=== PATIENT | male | born 1945 | race Caucasian/White ===

== ENCOUNTER → 2016-05-10 | Outpatient (CLI) | payer OTHER ==
[~2016-05-10] MED LIST: NA BICARBONATE 50 MEQ/50 ML VIAL ONE
== END ==
LOC: FIMAGING 12:13
PROVIDERS: ATTEND Radiology Diagnostic Radiology
PROC: 07BH3ZX Excision of Right Inguinal Lymphatic, Percutaneous Approach, Diagnostic (ICD-10-PCS; principal; 2016-05-10)
DX: C79.89 Secondary malignant neoplasm of other specified sites (principal); C60.9 Malignant neoplasm of penis, unspecified

== ENCOUNTER 2016-06-20 11:11 | Observation (INO) | payer OTHER ==
--- NOTE | 2016-06-19 18:17 | GHP ---
[f rep st] PREOP HISTORY AND PHYSICAL This is a 71-year-old gentleman who has had squamous cell carcinoma of the penis, and he has had bebeto ateral limited groin node dissections, and then he had a recurrence of the tumor in the left groin a nd that was dissected. He has had radiation and chemotherapy for that. Now he has a right lymph no de that does not appear to be fixed, but it is quite palpable and is noted on imaging. At the prese nt time, he is admitted for a right pelvic lymph node and inguinal lymph node dissection. 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 PAST SURGICAL HISTORY: Hand, inguinal lymphadenectomy, pelvic lymphadenectomy, penectomy. MEDICATIONS: Metformin. ALLERGIES: None. FAMILY HISTORY: Positive for heart disease and hypertension. SOCIAL HISTORY: Moderate alcohol consumption. Former smoker. REVIEW OF SYSTEMS: Negative for cardiac, respiratory, GI, and endocrine. PHYSICAL EXAM: VITAL SIGNS: Stable. CHEST: Clear. HEART: Regular rate and rhythm. ABDOMEN: N ormal. No organomegaly, rebound, or guarding. He has had a distal penectomy and a left groin disse ction as well as inguinal and iliac lymph node dissection, and he has a right groin mass. At the present time, he is admitted for the above procedure. Indications, complications, and option s discussed. Written and verbal consent has been obtained. He is admitted for the above procedure. /[id number]/MODL
[2016-06-20] MEDS ORDERED: CEFAZOLIN 1 GM/DEXTROSE/50 ML BAG IV ONE (12:00)
[2016-06-20] MEDS ORDERED: MIDAZOLAM 2 MG/2 ML VIAL ONE (12:30)
[2016-06-20] MEDS ORDERED: fentaNYL 250 MCG/5 ML INJ ONE (12:31)
[2016-06-20] MEDS ORDERED: PROPOFOL/EMULSION 500 MG/50 ML BOTTLE IV ONE (12:32)
[2016-06-20] MEDS ORDERED: D5W LR 1,000 ML IV ONE (13:30)
[2016-06-20] MEDS ORDERED: BUPIVACAINE 0.5% 30 ML SDV ONE (14:59)
[2016-06-20] MEDS ORDERED: fentaNYL 100 MCG/2 ML INJ ONE ×2 (15:02→16:19)
[2016-06-20] MEDS ORDERED: ONDANSETRON 4 MG/2 ML VIAL IVP PRN (15:34)
[2016-06-20] MEDS ORDERED: HYDROmorphONE/DILAUDID 1 MG/ML SYR IVP PRN (15:34)
[2016-06-20] MEDS ORDERED: ACETAMINOPHEN 325 MG TAB PO PRN (15:34)
[2016-06-20] MEDS ORDERED: ONDANSETRON DISINTEGRATING 4 MG TAB PO PRN (15:34)
[2016-06-20] MEDS ORDERED: NALOXONE HCL 0.4 MG/ML INJ IVP PRN (15:34)
--- NOTE | 2016-06-20 16:15 | GOP ---
[f rep st] OPERATIVE REPORT DATE OF OPERATION: 06/20/2016 SURGEON: Dima Jeffers MD PERSONAL LINES UNDERWRITER SURGEON: Jayro Christian MD ANESTHESIA: General anesthesia. After an appropriate time-out and undergoing general anesthesia and being prepped and draped in a frog-legged position, and then the incision was carried from just 4 cm below the palpable inguinal nodes to just 4 cm below the umbilicus in the right lateral axillary line, and this was carried down through to the point I get to the Miley's fascia layers, and I dissected that off so their skin flaps appeared to be well vascularized. I then was able to take the dissection down to where I could identify the inguinal ligament. The inferior part of the rectus muscle and external oblique fibers of the external ring and the inguinal spermatic cord, and then this was carried down to identify the adductor glenis muscle medially and the sartorius laterally and carried below the palpable mass, and then this dissection was carried to the point I could identify the femoral vein, and there is a big venous complex that came off the anteromedial aspect of the vein that went into the mass, and that was handled and managed with hemoclips and identified the femoral artery, the femoral vein and stayed just to the lateral edge of the femoral artery and did not dissect over the femoral nerves. This was carried down to where a skeletonized fascia of the appropriate muscle layers as described above. Then, the inguinal ligament was divided and entered the retroperitoneal space and carried the dissection along the femoral vein up to where there was some palpable nodes just inside the true pelvis. Then, the nodes were dissected from the medial aspect of the external iliac vein. I could identify by palpation the obturator foramen, and there were no palpable nodes at that point. The dissection was taken up to the point where there no palpable disease and anything above our dissection appeared to be normal feeling tissue. I could identify the femoral vein up to just below the bifurcation of the common iliac. The bladder was not entered, and it grossly appeared to be intact. Hemostasis was provided with a ligature and hemoclips. At the end of the procedure, there was no bleeding sites identified. There was no palpable disease. The vessels were skeletonized and had good pulses of the lower extremity on the right side with palpable pulses in the foot, and the vein had no appearance of compromise. The subcutaneous tissue was approximated with 0 Vicryl. After placing a 10 flat Dillon-Lewis drain that went in the femoral dissection as well into the pelvis and brought out through the inferior part of the incision just lateral, and then after closure of the subcutaneous tissue, the skin was approximated with shelby. The drain was sewn in place with a 3-0 silk. Marcaine was used to infiltrate the operative field for local pain control. ANESTHESIOLOGIST: Dr. Beauchamp. PREOPERATIVE DIAGNOSIS: Squamous cell carcinoma of the penis, metastatic to right groin and pelvic lymph nodes. POSTOPERATIVE DIAGNOSIS: Squamous cell carcinoma of the penis, metastatic to right groin and pelvic lymph nodes. PROCEDURE PERFORMED: Right superficial and deep femoral node dissection and pelvic external iliac node dissection. FINDINGS: Bulky nodes of the groin and small shoddy nodes of the iliac node chain SPECIMENS: Sent to pathology. ESTIMATED BLOOD LOSS: Less than 100 mL. DESCRIPTION OF PROCEDURE: COMPLICATIONS: None. He will be admitted postoperatively overnight and will request that he has a thigh length compression stocking. This was an attempt to prevent any significant lower extremity edema. We discussed the above issues with his , and she appears to be well informed , and I have answered her questions to the best of my ability. Copy requested to: Dr. Hanley /[id number]/MODL MTDD
[2016-06-20] MEDS: D5W 1/2 NS W/ 20 KCl/L 1,000 ML IV SCH (17:39)
[2016-06-20] MEDS: OXYCODONE/APAP 5/325 TAB PO PRN ×3 (17:39→23:45)
[2016-06-20] MEDS: metFORMIN HCL 500 MG TAB PO SCH (19:00)
[2016-06-20] MEDS ORDERED: HYDROmorphONE/DILAUDID 6 MG/30 ML PCA IV PRN (19:40)
[2016-06-20] MEDS ORDERED: ATORVASTATIN CALCIUM 20 MG TAB PO SCH (21:00)
[2016-06-21] MEDS: D5W 1/2 NS W/ 20 KCl/L 1,000 ML IV SCH (03:17)
[2016-06-21 05:00] VITALS: TEMP 97.7
[2016-06-21 07:43] VITALS: BP 112/66; PULSE 70; RESP 16
--- NOTE | 2016-06-21 08:02 | SOAPPROG ---
SOAP Progress Note Assessment/Plan: Assessment: Metastatic squamous cell carcinoma Acute Squamous cell carcinoma of penis Acute POD 1, VSS, consider dc later today, path pending Plan: as noted, dc with [facility], pt aware of use and care from prior surgery 06/21/16 08:27 Subjective: doing well Objective: Vital Signs Temp Pulse Resp BP Pulse Ox 36.5 C 70 16 112/66 97 06/21/16 07:40 06/21/16 07:40 06/21/16 07:40 06/21/16 07:40 06/21/16 07:40 06/20/16 06/21/16 06/22/16 05:59 05:59 05:59 Intake Total 4300 1255 Output Total 2660 35 Balance 1640 1220 Physical Exam - Physical Exam General Appearance: alert Respiratory: No respiratory distress Cardiac/Chest: regular rate, rhythm Abdomen: soft Male Genitalia: other (groin and leg on right normal, dressing dry, lymph fluid from the [facility]) Back: No CVA tenderness Extremities: non-tender, No calf tenderness, No swelling, No Gildardo's sign Neuro/Psych: alert, oriented x 3 ICD10 Worksheet Patient Problems: Problems Problem Status Onset Metastatic squamous cell carcinoma Acute Squamous cell carcinoma of penis Acute
[2016-06-21] MEDS: metFORMIN HCL 500 MG TAB PO SCH (08:43)
[2016-06-21] MEDS: OXYCODONE/APAP 5/325 TAB PO PRN (10:50)
[2016-06-21 10:59] VITALS: O2SAT 93
== END 2016-06-21 11:35 | disposition home or self-care (01) ==
LOC: INTOOBSV 11:11 → F3E 11:11 → F1N 15:33
PROVIDERS: ADMIT Specialist; ATTEND Specialist
PROC: 07BH0ZX Excision of Right Inguinal Lymphatic, Open Approach, Diagnostic (ICD-10-PCS; principal; 2016-06-20 13:00)
DX: C77.4 Secondary and unspecified malignant neoplasm of inguinal and lower limb lymph nodes (principal); C60.9 Malignant neoplasm of penis, unspecified
CPT/HCPCS: 38500; G0378; J0690; J2250; J2704; J3010

== ENCOUNTER → 2016-10-30 | Outpatient (CLI) | payer OTHER ==
[~2016-10-30] MED LIST changes: +LIDOCAINE 1% 300 MG/30 ML SDV ONE; -NA BICARBONATE 50 MEQ/50 ML VIAL ONE
[2016-11-01 09:41] LABS: FINAL DIAGNOSIS See Comments; MICROSCOPIC DESCRIPTION See Comments
== END ==
LOC: FIMAGING 11:47
PROVIDERS: ATTEND Internal Medicine Hematology & Oncology
PROC: 07B23ZX Excision of Left Neck Lymphatic, Percutaneous Approach, Diagnostic (ICD-10-PCS; principal; 2016-10-30)
DX: C77.9 Secondary and unspecified malignant neoplasm of lymph node, unspecified (principal); C60.9 Malignant neoplasm of penis, unspecified; Z85.72 Personal history of non-Hodgkin lymphomas
CPT/HCPCS: 88184-90; 88185-91

== ENCOUNTER → 2017-01-02 | Outpatient (CLI) | payer OTHER | LOC: FIMAGING 13:41 | PROVIDERS: ATTEND Internal Medicine Hematology & Oncology | DX: I82.4Z2 Acute embolism and thrombosis of unspecified deep veins of left distal lower extremity (principal); C60.9 Malignant neoplasm of penis, unspecified ==

== ENCOUNTER 2017-01-06 09:20 | Inpatient (IN) | payer OTHER ==
[2017-01-06] MEDS ORDERED: ONDANSETRON 4 MG/2 ML VIAL IVP PRN (10:08)
[2017-01-06] MEDS ORDERED: ACETAMINOPHEN 325 MG TAB PO PRN (10:08)
[2017-01-06] MEDS ORDERED: ONDANSETRON DISINTEGRATING 4 MG TAB PO PRN (10:08)
[2017-01-06] MEDS ORDERED: NS 1,000 ML IV SCH (11:15)
[2017-01-06 11:44] LABS: INR 0.98 (0.83-1.16); PROTIME(PATIENT) 12.9 SEC (12.0-15.0)
[2017-01-06 11:45] LABS: APTT 28.6 SEC (23.0-38.0)
[2017-01-06] MEDS ORDERED: MIDAZOLAM 2 MG/2 ML VIAL ONE ×2 (13:14→13:53)
[2017-01-06] MEDS ORDERED: fentaNYL 100 MCG/2 ML INJ ONE ×2 (13:14→13:52)
[2017-01-06] MEDS ORDERED: FLUMAZENIL 0.5 MG/5 ML MDV IVP ONE (13:52)
[2017-01-06] MEDS ORDERED: NALOXONE HCL 0.4 MG/ML INJ ONE (13:52)
[2017-01-06] MEDS ORDERED: HEPARIN/DEXTROSE 25,000 UNIT/500 ML BAG ONE (13:58)
[2017-01-06] MEDS ORDERED: ALTEPLASE 5 MG in NS 100 ML IV SCH (14:00)
[2017-01-06] MEDS ORDERED: IOPAMIDOL (ISOVUE-300) 100 ML BTL ONE (14:28)
[2017-01-06] MEDS ORDERED: PROMETHAZINE HCL 25 MG/ML INJ IVP PRN (14:46)
[2017-01-06] MEDS ORDERED: LORazepam 1 MG TAB PO PRN (14:46)
--- NOTE | 2017-01-06 14:56 | POSTOPPROG ---
Post Op Note Date of Operation: 01/06/17 Surgeon: Tia Junior Anesthesia: IV Sedation (fentanyl and versed) Pre-op Diagnosis: LLE DVT Post-op Diagnosis: same Indication: very red and swollen LLE Procedure: venogram, TPA lysis Findings: acute LLE DVT and stricture at EIV Inf/Abcess present in the surg proc area at time of surgery?: No Depth: Superfical (Skin SQ) EBL: Minimal Complications: None
[2017-01-06] MEDS ORDERED: HEPARIN/DEXTROSE 500 ML IV SCH (15:00)
[2017-01-06 15:59] LABS: % IMMATURE GRANULYOCYTES 0.5 % (0.0-1.1); ABSOLUTE IMMATURE GRANULOCYTES 0.03 10^3/uL (0.00-0.10); ADD DIFF? NO; ADD MORPH? NO; ADD SCAN? NO; ATYPICAL LYMPHOCYTE FLAG 40 (0-99); FRAGMENT RBC FLAG 0 (0-99); HEMATOCRIT 35.5 % (40.0-51.0); HEMOGLOBIN 12.5 g/dL (13.7-17.5); LEFT SHIFT FLG 0 (0-99); LIPEMIA HEMOLYSIS FLAG 90 (0-99); MEAN CELL HEMOGLOBIN 35.8 pg (27.9-34.1); MEAN CELL HEMOGLOBIN CONCENTR. 35.2 g/dL (32.4-36.7); MEAN CELL VOLUME 101.7 fL (81.5-99.8); MEAN PLATELET VOLUME 9.4 fL (8.7-11.7); PLATELET CLUMPS FLAG 0 (0-99); PLATELET COUNT 252 10^3/uL (150-400); RED BLOOD CELL COUNT 3.49 10^6/uL (4.40-6.38); RED CELL DISTRIBUTION WIDTH 13.1 % (11.5-15.2)
[2017-01-06] MEDS ORDERED: ZOLPIDEM TARTRATE 5 MG TAB PO PRN (16:07)
[2017-01-06 16:13] LABS: APTT 28.4 SEC (23.0-38.0)
[2017-01-06] MEDS: ALTEPLASE 5 MG in NS 100 ML IV SCH ×3 (16:32→23:55)
[2017-01-06 16:35] LABS: ANION GAP 10 mEq/L (8-16); CALCIUM 9.5 mg/dL (8.5-10.4); CARBON DIOXIDE 22 mEq/l (22-31); CHLORIDE 101 mEq/L (97-110); CREATININE 0.8 mg/dL (0.7-1.3); GLOMERULAR FILTRATION RATE > 60; GLUCOSE 104 mg/dL (70-100); SODIUM 133 mEq/L (134-144)
[2017-01-06] MEDS: metFORMIN HCL 500 MG TAB PO SCH (16:53)
--- NOTE | 2017-01-06 17:19 | GHP ---
[f rep st] HISTORY AND PHYSICAL DATE OF ADMISSION: 01/06/2017 CHIEF COMPLAINT: Left leg swelling and pain. HISTORY OF PRESENT ILLNESS: This is 71 year-old male with known history of penile carcinoma, metastatic, status both chemotherapy and radiation, who presents with several weeks of progressive left lower extremity edema and ultimately pain. The patient has had lymph node dissections on the right related to malignancy without right lower extremity swelling. He then went on a very extended over [address] trip. During the course of this drip and after noted marked increased edema of his left lower extremity. The patient presented to his outpatient oncologist who obtained an ultrasound and confirmed the presence of a very large deep venous thrombosis on the left. The patient denies any subjective fevers or chills. Denies palpitations. Denies shortness of breath. Denies pleuritic chest pain. Denies headache, vision changes, dysphagia, nausea, vomiting. Has noted the edema noted above. Denies any rashes. PAST MEDICAL HISTORY: 1. Metastatic squamous cell cancer of the penis receiving immunotherapies and status post radiation. 2. Non-Hodgkins Lymphoma diagnosed in 2014. 3. Hypertension. 4. Steroid induced hyperglycemia. SOCIAL HISTORY: Negative for tobacco, alcohol, or illicit drugs. FAMILY HISTORY: Positive for multiple relatives with MD and stroke. REVIEW OF SYSTEMS: A 10-point review of systems is negative with the exception of reported in the HPI. PHYSICAL EXAMINATION: VITAL SIGNS: Blood pressure 161/72, heart rate 78, respiratory rate 12, saturating 95% on room air. Afebrile. HEENT: Exam is notable for moist mucous membranes. Eye exam is negative for any icterus. CARDIAC: The patient is regular rate and rhythm. PULMONARY: Clear to auscultation bilaterally. GASTROINTESTINAL: Positive bowel sounds. ABDOMEN: Soft and nontender in all 4 quadrants. MUSCULOSKELETAL: Notable for marked edema of the left lower extremity. 2+ extending from the foot, the groin. With no lower extremity edema of the right lower extremity. SKIN: Exam is notable for a reddening of the left lower extremity. No focal rashes. NEUROLOGIC: The patient is alert and oriented x3. PSYCHIATRIC: He is pleasant and cooperative on interview and examination. LABORATORY DATA: WBC count is normal, platelet count 250. IMAGING: Ultrasound of the lower extremity, which I personally reviewed, shows extensive DVT of the left lower extremity. Telemetry, which I personally reviewed and interpreted, shows sinus rhythm with no acute changes. ASSESSMENT AND PLAN: This is a 71 year-old gentleman presenting with left lower extremity swelling and pain. 1. Acute left lower extremity deep venous thrombosis, extensive. The patient has multiple risk factors, including malignancy, recent car travel, and recent surgical intervention. The patient is presenting for elective thrombolysis with Interventional Radiology, then to resume long-term anti coagulation. Will treat with IV pain medications and follow up thrombolysis protocol over night. The patient will be admitted to the intensive care unit. 2. Metastatic squamous cell penile carcinoma. The patient is followed closely by [facility]. Will continue his treatment course per their directives. 3. Hypertension. Will continue his outpatient medications. 4. Steroid induced hyperglycemia. We can follow the patient's blood glucose while inpatient. If greater than 200s will initiate sliding scale insulin. 5. Prophylaxis. The patient is on thrombolysis protocol. 6. Diet, regular. DISPOSITION: I expect in greater than 2 midnights. The patient is presenting for the 1st stages of thrombolysis, will likely require 2-midnight hospitalization until completion of the protocol. I have discussed the case with Dr. Pulido from pulmonary critical care. The patient will be admitted per protocol to the ICU to complete his thrombolysis. /[id number]/MODL MTDD
[2017-01-06] MEDS ORDERED: NON-FORMULARY NEW DRUG (Metformin Hcl [Glucophage 1000 Mg] 1,000 MG) PO SCH (18:00)
[2017-01-06] MEDS: HYDROCODONE/APAP 5/325 TAB PO PRN ×2 (18:06→21:58)
[2017-01-06] MEDS ORDERED: ATORVASTATIN CALCIUM 20 MG TAB PO SCH (21:00)
[2017-01-07 04:04] LABS: ANION GAP 8 mEq/L (8-16); CALCIUM 8.5 mg/dL (8.5-10.4); CARBON DIOXIDE 24 mEq/l (22-31); CHLORIDE 103 mEq/L (97-110); CREATININE 0.7 mg/dL (0.7-1.3); GLOMERULAR FILTRATION RATE > 60; GLUCOSE 116 mg/dL (70-100); POTASSIUM 4.3 mEq/L (3.5-5.2); SODIUM 135 mEq/L (134-144)
[2017-01-07 04:08] LABS: APTT 47.3 SEC (23.0-38.0)
[2017-01-07 04:13] LABS: % IMMATURE GRANULYOCYTES 0.8 % (0.0-1.1); ABSOLUTE IMMATURE GRANULOCYTES 0.05 10^3/uL (0.00-0.10); ADD DIFF? NO; ADD MORPH? NO; ADD SCAN? NO; ATYPICAL LYMPHOCYTE FLAG 20 (0-99); FRAGMENT RBC FLAG 0 (0-99); HEMATOCRIT 35.4 % (40.0-51.0); LEFT SHIFT FLG 0 (0-99); LIPEMIA HEMOLYSIS FLAG 90 (0-99); MEAN CELL HEMOGLOBIN 35.1 pg (27.9-34.1); MEAN CELL HEMOGLOBIN CONCENTR. 33.9 g/dL (32.4-36.7); MEAN CELL VOLUME 103.5 fL (81.5-99.8); MEAN PLATELET VOLUME 9.5 fL (8.7-11.7); PLATELET CLUMPS FLAG 0 (0-99); PLATELET COUNT 255 10^3/uL (150-400); RED BLOOD CELL COUNT 3.42 10^6/uL (4.40-6.38); RED CELL DISTRIBUTION WIDTH 13.4 % (11.5-15.2)
[2017-01-07] MEDS: ALTEPLASE 5 MG in NS 100 ML IV SCH ×2 (04:33→14:22)
[2017-01-07] MEDS: metFORMIN HCL 500 MG TAB PO SCH ×2 (08:43→17:00)
[2017-01-07] MEDS: HYDROCODONE/APAP 5/325 TAB PO PRN ×3 (08:43→17:00)
--- NOTE | 2017-01-07 09:17 | PDMN ---
Medical Necessity Medical necessity: Patient meets INPT criteria per physician note and MCG M-350 DVT of LE's (catheter-directed thrombolysis of acute extensive LLE DVT after hx of metastatic penile carcinoma, progressive LLE pain and edema post-long road trip; HTN; steroid-induced hyperglycemia; anticipated LOS > 2 midnights w/ ICU monitoring and f/u thrombolysis protocol.)
[2017-01-07 12:43] VITALS: PULSE 81; TEMP 98; O2SAT 98
[2017-01-07 14:06] VITALS: BP 122/73; RESP 20
--- NOTE | 2017-01-07 14:13 | GCON ---
[f rep st] CONSULTATION The patient is a 71-year-old male who has a history of penile cancer and follicular lymphoma. To rev iew, he was initially diagnosed with penile cancer in October of 2013. He underwent a partial penecto my and then, in December 2013, he underwent a right inguinal lymph node dissection with no evidence of malignancy. In March of 2014, he underwent a left inguinal lymph node dissection. Two lymph node s were submitted, both of which showed follicular lymphoma. He was staged that at that time and had no evidence of systemic disease, and then received radiation therapy to the left inguinal region. Un fortunately, in late 2014, he was found to have another mass in his left groin, and a biopsy showed r ecurrent squamous cell carcinoma. PET scan showed no evidence of widespread disease, and he underwen t a radical lymph node dissection, with a number of lymph nodes showing metastatic squamous cell carc inoma. He then underwent adjuvant chemotherapy with paclitaxel, ifosfamide, and cisplatin for 4 cycl es, from June of 2015 to August of 2015. Unfortunately, after that, he recurred in his right inguinal area and again underwent a repeat right inguinal and femoral lymph node dissection, and 3 out of 9 n odes were involved. PET scan prior to that showed no evidence of disease. However, a repeat PET sca n, performed September of 2016, showed development of a glucose-avid left supraclavicular node, as well as retroperitoneal adenopathy. He was then started on a clinical trial using nivolumab and has done we ll. However, he developed subacute swelling in his left leg and was found to have an extensive left leg DVT. He was started on Lovenox last week, but as the leg showed no evidence of improvement, he h as been admitted for lytic therapy, which was started yesterday. He currently is lying supine in bed , somewhat bored but otherwise doing okay. PAST MEDICAL HISTORY: Significant for diabetes and hypertension. FAMILY HISTORY: Significant for coronary artery disease. REVIEW OF SYSTEMS: Negative, except as discussed in the HPI. PHYSICAL EXAM: GENERAL: He is a pleasant male. VITAL SIGNS: Stable. LYMPHATICS: No adenopathy. LUNGS: Clear. CARDIAC: Unremarkable. ABDOMEN: Benign. EXTREMITIES: There is scrotal edema, an d his left leg is quite swollen, with an intact dorsalis pedis pulse. LABORATORY DATA: White count of 6000, hemoglobin 12, platelets 314,000. Chemistry panel is generall y unremarkable. IMPRESSION: Extensive left leg deep vein thrombosis in the setting of both penile cancer and a histo ry of follicular lymphoma. He has had multiple violations of his inguinal and femoral areas on both the right and the left, and there is evidence of a high-grade stricture in the midpelvis, in the mid external iliac vein. PLAN: We will continue with lytic therapy. Additional thrombolytics therapy. Perhaps mechanical th rombectomy and stent placement may be indicated. Our service will follow with you. /[id number]/MODL
[2017-01-07] MEDS ORDERED: MIDAZOLAM 2 MG/2 ML VIAL ONE (15:15)
[2017-01-07] MEDS ORDERED: fentaNYL 100 MCG/2 ML INJ ONE (15:15)
[2017-01-07] MEDS ORDERED: IOPAMIDOL (ISOVUE-300) 100 ML BTL ONE (16:14)
--- NOTE | 2017-01-07 16:18 | ASMTCMCOM ---
CM Note CM Note Notes: 71 year old male admitted for L LE pain-DVT. He has a hx of penile CA with mets-s/p chemo and radiation. Patient took a recent 3,000 mi trip. He has a hx of HTN and steroid induced hyperglycemia. CM to follow may not have discharge needs. Date Signed: 01/07/2017 04:17 PM Electronically Signed By:Lamar Nicholson LCSW
--- NOTE | 2017-01-07 17:06 | POSTOPPROG ---
Post Op Note Date of Operation: 01/07/17 Surgeon: Tia Junior Pre-op Diagnosis: LLE DVT Post-op Diagnosis: same Indication: lysis follow up Procedure: venogram; stent placement Findings: complete clot lysis. two strictures opened with stents Inf/Abcess present in the surg proc area at time of surgery?: No Depth: Superfical (Skin SQ) EBL: Minimal Complications: None
[2017-01-07] MEDS ORDERED: FLU VACC QS 2017-18 (3YR+)/PF 0.5 ML SYR (FLUARIX QUAD) IM ONE (17:13)
--- NOTE | 2017-01-07 17:16 | GDS ---
[f rep st] DISCHARGE SUMMARY DISCHARGE DIAGNOSES: Include: 1. Acute deep venous thrombosis of the left lower extremity, status post thrombolysis and stenting. 2. Metastatic squamous cell carcinoma of the penis. 3. Hypertension. HISTORY OF PRESENT ILLNESS: This is a 71-year-old male with a history of squamous cell carcinoma of the penis, who presents with new left lower extremity pain and swelling. For details of patient's in itial presentation, please see the History and Physical dated 01/06/2017. CONSULTATIVE SERVICES: Include Oncology and Interventional Radiology. PROCEDURES: On 01/06, the patient underwent venogram and thrombolysis. On 01/07/2017, patient under went vascular stenting of his left lower extremity with complete thrombus removal of his DVT. HOSPITAL COURSE BY ISSUE: 1. Acute DVT of the left lower extremity. Patient had recent surgery, long car travel and underlyin g malignancy; was brought to the hospital as the extent of the clot was quite significant. He was ad mitted through Interventional Radiology in the initiation of thrombolysis to the ICU, where he was mo nitored overnight. Completion of his thrombus removal and stenting was completed on 01/07/2017. He will be discharged home on Lovenox injections and heparin initiation. He will follow in [facility] on 12/23, for his 1st INR check. The patient is being provided a few [place] for pain control until his first post disposition followup at [facility]. 2. Hypertension. He will be continued on his normal home medications without alteration. 3. Steroid-induced hyperglycemia. Patient is being continued on oral metformin, to be discontinue b y [facility] when appropriate with his outpatient treatment for squamous cell CA. MEDICATIONS AT THE TIME OF TRANSFER: Please reference med rec printed on 01/07/2017. FOLLOWUP APPOINTMENTS: Include with [facility] later this week for his 1st INR check, as well as with Dr. Tinsley, his primary care provider, as needed for long-term management of his medical comorbidities. I spent greater than 30 minutes in the planning and coordination of this discharge. /[id number]/MODL
[2017-01-07 18:35] LABS: ABSOLUTE IMMATURE GRANULOCYTES 0.08 10^3/uL (0.00-0.10); ADD DIFF? NO; ADD MORPH? NO; ADD SCAN? NO; ATYPICAL LYMPHOCYTE FLAG 20 (0-99); FRAGMENT RBC FLAG 0 (0-99); HEMATOCRIT 36.7 % (40.0-51.0); HEMOGLOBIN 12.8 g/dL (13.7-17.5); LEFT SHIFT FLG 10 (0-99); LIPEMIA HEMOLYSIS FLAG 90 (0-99); MEAN CELL HEMOGLOBIN 36.4 pg (27.9-34.1); MEAN CELL HEMOGLOBIN CONCENTR. 34.9 g/dL (32.4-36.7); MEAN CELL VOLUME 104.3 fL (81.5-99.8); MEAN PLATELET VOLUME 9.5 fL (8.7-11.7); PLATELET CLUMPS FLAG 0 (0-99); PLATELET COUNT 221 10^3/uL (150-400); RED BLOOD CELL COUNT 3.52 10^6/uL (4.40-6.38); RED CELL DISTRIBUTION WIDTH 13.2 % (11.5-15.2)
--- NOTE | 2017-01-08 16:05 | ASDISCHSUM ---
Discharge Information Plan Status:Home with No Needs Medically Cleared to Leave: Discharge Date:01/07/2017 07:03 PM CM D/C Disposition:Home, Routine, Self-Care ADT D/C Disposition:Home, Routine, Self-Care Projected Discharge Date:01/07/2017 07:03 PM Transportation at D/C:Family Discharge Delay Reason: Follow-Up Date:01/07/2017 07:03 PM Discharge Slot: Final Diagnosis:LLE Pain, DVT Placement Information Patient Contact Information Contact Name:SAMANTHA Relationship: Address:[address] City:[place] Alternate Phone: [facility]/Zip Code:[place] [address] Email: Financial Information Financial Class:Medicare Advantage Plans Primary Plan Desc:[employer] MEDICARE Primary Plan Number:[id number] Secondary Plan Desc: Secondary Plan Number: Assessment Information [facility] CM Progress Note CM Note CM Note Notes: 71 year old male admitted for L LE pain-DVT. He has a hx of penile CA with mets-s/p chemo and radiation. Patient took a recent 3,000 mi trip. He has a hx of HTN and steroid induced hyperglycemia. CM to follow may not have discharge needs. Date Signed: 01/07/2017 04:17 PM Electronically Signed By:Lamar Nicholson LCSW Intervention Information
== END 2017-01-07 19:03 | disposition home or self-care (01) | DRG 253 ==
LOC: PREOBSVTOIN 10:20 → F2N 11:03
PROVIDERS: ADMIT Hospitalist; ATTEND Hospitalist
PROC: 3E03317 Introduction of Other Thrombolytic into Peripheral Vein, Percutaneous Approach (ICD-10-PCS; 2017-01-06)
PROC: 06HD3DZ Insertion of Intraluminal Device into Left Common Iliac Vein, Percutaneous Approach (ICD-10-PCS; principal; 2017-01-07)
PROC: 06H Lower Veins, Insertion (ICD-10-PCS; principal; 2017-01-07)
DX: I82.422 Acute embolism and thrombosis of left iliac vein (principal); C77.9 Secondary and unspecified malignant neoplasm of lymph node, unspecified; Z85.46 Personal history of malignant neoplasm of prostate; C85.90 Non-Hodgkin lymphoma, unspecified, unspecified site; R73.9 Hyperglycemia, unspecified; T38.0X5A Adverse effect of glucocorticoids and synthetic analogues, initial encounter; I10 Essential (primary) hypertension; Z92.3 Personal history of irradiation
CPT/HCPCS: C1725; C1757; C1769; C1876; C1892; C1894; G0008; J1644; J2250; J2310; J2997; J3010; Q9967